=== PATIENT | male | born 1980 | race Caucasian/White ===

== ENCOUNTER 2017-01-12 17:24 | Inpatient (IN) | payer MEDICAID ==
[~2017-01-12] VITALS: Ht 177.8 cm; Wt 68.7 kg
[2017-01-12 17:59] LABS: BASOPHIL % 0.3 % (0-2); PLATELET COUNT 293 x10^3mcL (130-400); RED CELL DISTRIBUTION WIDTH 11.8 % (11.5-14.5)
[2017-01-12 18:09] LABS: CARBON DIOXIDE 32.7 mmol/L (21-32); CHLORIDE SERUM 99 mmol/L (98-107); GFR1 > 60 mL/min; GLUCOSE SERUM 112 mg/dL (74-106); POTASSIUM SERUM 3.6 mmol/L (3.5-5.1); SODIUM SERUM 137 mmol/L (136-145)
[2017-01-12 18:15] LABS: ALKALINE PHOSPHATASE 98 U/L (46-116); ALT/SGPT 12 U/L (16-63); AST/SGOT 10 U/L (15-37); BILIRUBIN TOTAL 0.36 mg/dL (0.20-1.00); TOTAL PROTEIN, SERUM 7.7 g/dL (6.4-8.2)
[2017-01-12 18:16] LABS: ALBUMIN 3.3 g/dL (3.4-5.0)
[2017-01-12 20:50] VITALS: BP 130/77
[2017-01-12 21:09] LABS: FREE T4 1.2 ng/dL (0.76-1.46); FREE THYROXINE INDEX 2.6 ug/dL (1.4-4.5); T4(THYROXINE) 6.4 ug/dL (4.7-13.3)
[2017-01-12 21:10] LABS: T3 TOTAL 0.68 ng/mL
[2017-01-12 21:32] LABS: CHOLESTEROL/HDL RATIO 2.2; MAGNESIUM 1.8 mg/dL (1.8-2.4)
[2017-01-13 06:00] VITALS: BP 109/69
[2017-01-13 06:14] LABS: BASOPHIL % 0.1 % (0-2); PLATELET COUNT 258 x10^3mcL (130-400); RED CELL DISTRIBUTION WIDTH 11.9 % (11.5-14.5)
[2017-01-13 08:35] VITALS: BP 124/79
[2017-01-13 12:10] VITALS: BP 118/69
[2017-01-13 16:15] VITALS: BP 100/61
[2017-01-13 21:17] VITALS: BP 111/65
[2017-01-14 05:49] VITALS: BP 105/87
[2017-01-14 06:12] LABS: BASOPHIL % 0.4 % (0-2); PLATELET COUNT 271 x10^3mcL (130-400); RED CELL DISTRIBUTION WIDTH 11.6 % (11.5-14.5)
== END 2017-01-14 10:10 | disposition left against medical advice (07) | DRG 720 ==
LOC: ED 17:24 → DU 20:06 → MU 01-14 08:21
PROVIDERS: Emergency Medicine; Family Medicine; ADMIT Family Medicine
DX: A41.9 Sepsis, unspecified organism (principal); E44.0 Moderate protein-calorie malnutrition; L03.311 Cellulitis of abdominal wall; R73.03 Prediabetes; Z68.21 Body mass index [BMI] 21.0-21.9, adult
CPT/HCPCS: 82962; 83880; 84439; J0295; J1170; J1885; J2270; J3010; J3490; J7030; Q0092; Q0177

== ENCOUNTER 2017-09-30 22:03 | Emergency (ER) | payer MEDICAID ==
[~2017-09-30] VITALS: Ht 177.8 cm; Wt 65.0 kg
[2017-09-30 22:37] VITALS: Ht 177.8 cm; Wt 65.0 kg
[2017-09-30 23:44] VITALS: BP 127/78
== END 2017-09-30 23:44 | disposition home or self-care (01) ==
LOC: ED 22:03
DX: L03.221 Cellulitis of neck (principal)

== ENCOUNTER 2018-07-25 16:35 | Emergency (ER) | payer MEDICAID ==
[~2018-07-25] VITALS: Ht 177.8 cm; Wt 71.7 kg
[2018-07-25 17:20] VITALS: Ht 177.8 cm; Wt 71.7 kg
[2018-07-25 20:53] VITALS: BP 115/78
== END 2018-07-25 20:50 | disposition home or self-care (01) ==
LOC: ED 16:35
DX: J06.9 Acute upper respiratory infection, unspecified (principal)

== ENCOUNTER 2019-04-27 22:31 | Emergency (ER) | payer MEDICAID ==
[~2019-04-27] VITALS: Ht 177.8 cm; Wt 68.0 kg
[2019-04-27 22:43] VITALS: Ht 177.8 cm; Wt 68.0 kg
[2019-04-27 23:16] VITALS: BP 131/85
== END 2019-04-27 23:16 | disposition home or self-care (01) ==
LOC: ED 22:31
DX: J06.9 Acute upper respiratory infection, unspecified (principal); J00 Acute nasopharyngitis [common cold]
CPT/HCPCS: Q0092